=== PATIENT | female | born 1955 | race Caucasian/White ===

== ENCOUNTER 2017-05-30 12:22 | Emergency (ER) | payer OTHER ==
[~2017-05-30] VITALS: Ht 167.6 cm; Wt 94.7 kg
[~2017-05-30 12:22] MED LIST: ATEN25TA PO; DULO60CA7 PO; LEVO175T5 PO; TELM80TA PO; TEMA30CA PO
[2017-05-30 13:26] LABS: HEMATOCRIT 48.8 % (34.6-47.8); HEMOGLOBIN 16.5 g/dL (11.7-16.4); WHITE BLOOD COUNT 12.4 x10^3/uL (3.4-10)
[2017-05-30 13:36] LABS: BLOOD UREA NITROGEN 11 mg/dL (7-18)
[2017-05-30] MEDS ORDERED: AMLODIPINE 5 MG TABLET PO ONE (14:30)
[2017-05-30 15:30] VITALS: BP 200/110
== END 2017-05-30 15:32 | disposition home or self-care (01) ==
LOC: ED 13:40
DX: N30.00 Acute cystitis without hematuria (principal); I10 Essential (primary) hypertension; Z90.49 Acquired absence of other specified parts of digestive tract; Z90.710 Acquired absence of both cervix and uterus; Z88.5 Allergy status to narcotic agent; Z88.1 Allergy status to other antibiotic agents; K21.9 Gastro-esophageal reflux disease without esophagitis; M06.9 Rheumatoid arthritis, unspecified
CPT/HCPCS: 36415; 80048; 81003; 82040; 85025; 93005; 99285